=== PATIENT | female | born 1960 | race Two or more races ===

== ENCOUNTER 2017-01-30 09:09 | Emergency (ER) | payer MEDICAID ==
[~2017-01-30] VITALS: Ht 154.9 cm; Wt 74.8 kg
[2017-01-30 10:01] LABS: Basophils # (auto) 0 uL; Basophils % (auto) 0.7 % (0.0-2.0); Eosinophils # (auto) 0.1 uL; Hematocrit 41.5 % (36.0-46.0); Hemoglobin 14.1 g/dL (12.2-16.2); Lymphocytes # (auto) 1.6 uL; Lymphocytes % (auto) 38.8 % (10.0-50.0); Mean Corpuscular Hemoglobin 28.3 pg (28.0-32.0); Mean Corpuscular Hgb Conc. 34.1 g/dL (32.0-36.0); Mean Corpuscular Volume 82.9 fL (80.0-100.0); Mean Platelet Volume 8.4 fL (7.4-10.4); Monocytes # (auto) 0.2 uL; Monocytes % (auto) 6.1 % (0.0-12.0); Neutrophils # (auto) 2.1 uL; Neutrophils % (auto) 51.4 % (37.0-80.0); Platelet Count (auto) 343 10^3/uL (140-450); Red Cell Distribution Width 13.2 % (11.6-16.0); White Blood Cell 4.1 10^3/uL (4.4-10.8)
[2017-01-30] MEDS ORDERED: SODIUM CHLORIDE 0.9% 250 ML IV ONE (10:12)
[2017-01-30] MEDS ORDERED: METOCLOPRAMIDE HCL 5MG/ml INJ 2ml VIAL IV ONE (10:15)
[2017-01-30] MEDS ORDERED: KETOROLAC TROMETH 30 MG/ML 1ML VIAL IV ONE (10:15)
[2017-01-30 10:33] LABS: Albumin 3.7 g/dL (3.4-5.0); Alkaline Phosphatase 88 U/L (45-117); Anion Gap 12 (5-15); Aspartate Aminotransferase 22 U/L (15-37); BUN/Creatinine Ratio 22.6; Bilirubin, Total 0.4 mg/dL (0.2-1.0); Blood Urea Nitrogen 14 mg/dL (7-18); Calcium 8.4 mg/dL (8.5-10.1); Carbon Dioxide 25 mmol/L (21-32); Chloride 102 mmol/L (98-107); GFR African American 127 mL/min; GFR Non-African American 105 mL/min; Glucose 192 mg/dL (74-106); Magnesium 2.2 mg/dL (1.6-2.6); Potassium 3.6 mmol/L (3.5-5.1); Sodium 139 mmol/L (136-145); Total Protein 7.1 g/dL (6.4-8.2)
[2017-01-30 10:46] LABS: Urine Bilirubin Negative (Negative); Urine Blood Negative /uL (Negative); Urine Color Yellow (Yellow); Urine Nitrite Negative (Negative); Urine RBC <1 /hpf (0 - 4); Urine Squamous Epithelial Cell FEW /hpf (<5); Urine Urobilinogen Normal (Negative); Urine pH 5.5 (5.0-8.0)
[2017-01-30 10:48] LABS: Urine Glucose 4+ mg/dL (Normal); Urine Ketone 2+ (Negative)
[2017-01-30 12:17] VITALS: BP 123/83
== END 2017-01-30 12:34 | disposition home or self-care (01) ==
LOC: ER 09:10
DX: R07.89 Other chest pain (principal); E11.65 Type 2 diabetes mellitus with hyperglycemia; I10 Essential (primary) hypertension; F41.9 Anxiety disorder, unspecified
CPT/HCPCS: 36415; 71020; 80053; 81001; 83735; 84443; 84484; 85025; 93005; 94761; 96374; 96375; 99285; J1885; J2765

== ENCOUNTER 2017-02-15 13:29 | Emergency (ER) | payer MEDICAID ==
[~2017-02-15] VITALS: Ht 154.9 cm; Wt 72.6 kg
[2017-02-15 14:50] LABS: Basophils # (auto) 0 uL; Basophils % (auto) 0.4 % (0.0-2.0); Eosinophils # (auto) 0.1 uL; Eosinophils % (auto) 1.4 % (0.0-7.0); Hematocrit 41.8 % (36.0-46.0); Hemoglobin 13.8 g/dL (12.2-16.2); Lymphocytes # (auto) 1.4 uL; Lymphocytes % (auto) 23.2 % (10.0-50.0); Mean Corpuscular Volume 84.6 fL (80.0-100.0); Mean Platelet Volume 9.3 fL (7.4-10.4); Monocytes # (auto) 0.3 uL; Monocytes % (auto) 4.7 % (0.0-12.0); Neutrophils # (auto) 4.1 uL; Neutrophils % (auto) 70.3 % (37.0-80.0); Platelet Count (auto) 319 10^3/uL (140-450); Red Cell Distribution Width 13.3 % (11.6-16.0); White Blood Cell 5.9 10^3/uL (4.4-10.8)
[2017-02-15 15:12] LABS: Albumin 3.7 g/dL (3.4-5.0); Anion Gap 11 (5-15); Aspartate Aminotransferase 17 U/L (15-37); BUN/Creatinine Ratio 18.3; Blood Urea Nitrogen 15 mg/dL (7-18); Calcium 8.3 mg/dL (8.5-10.1); Carbon Dioxide 24 mmol/L (21-32); Chloride 102 mmol/L (98-107); GFR African American 92 mL/min; GFR Non-African American 76 mL/min; Glucose 230 mg/dL (74-106); Magnesium 1.9 mg/dL (1.6-2.6); Potassium 3.9 mmol/L (3.5-5.1); Sodium 137 mmol/L (136-145)
[2017-02-15 15:17] LABS: Alkaline Phosphatase 85 U/L (45-117); Bilirubin, Total 0.3 mg/dL (0.2-1.0); Total Protein 7.2 g/dL (6.4-8.2)
[2017-02-15] MEDS ORDERED: NALBUPHINE HCL 10 MG/1ml INJECTION IM ONE (19:15)
[2017-02-15] MEDS ORDERED: ASPirin 81 mg TAB PO ONE (19:15)
[2017-02-15] MEDS ORDERED: ONDANSETRON ODT 4 MG TAB PO ONE (19:15)
[2017-02-15] MEDS ORDERED: NALBUPHINE HCL 10 MG/1ml INJECTION IV ONE (20:00)
[2017-02-15] MEDS ORDERED: ONDANSETRON HCL 4 MG/2 ML VIAL IV ONE (20:15)
[2017-02-15 21:30] VITALS: BP 145/92
== END 2017-02-15 21:54 | disposition home or self-care (01) ==
LOC: ER 13:29
DX: E07.89 Other specified disorders of thyroid (principal); E11.9 Type 2 diabetes mellitus without complications; I10 Essential (primary) hypertension
CPT/HCPCS: 36415; 71020; 80053; 83735; 84484; 85025; 93005; 96374; 96375; 99285; J2300; J2405

== ENCOUNTER 2017-08-27 13:30 | Emergency (ER) | payer MEDICAID ==
[~2017-08-27] VITALS: Ht 157.5 cm; Wt 72.6 kg
[2017-08-27 14:10] LABS: Basophils # (auto) 0 uL; Basophils % (auto) 0.5 % (0.0-2.0); Eosinophils # (auto) 0 uL; Eosinophils % (auto) 0.2 % (0.0-7.0); Hematocrit 43.6 % (36.0-46.0); Hemoglobin 14.8 g/dL (12.2-16.2); Lymphocytes # (auto) 1.8 uL; Lymphocytes % (auto) 26.8 % (10.0-50.0); Mean Corpuscular Hemoglobin 28.4 pg (28.0-32.0); Mean Corpuscular Hgb Conc. 33.9 g/dL (32.0-36.0); Mean Corpuscular Volume 83.8 fL (80.0-100.0); Monocytes # (auto) 0.4 uL; Monocytes % (auto) 5.5 % (0.0-12.0); Neutrophils # (auto) 4.5 uL; Nucleated Red Blood Cells % 0.1 %; Platelet Count (auto) 284 10^3/uL (140-450); Red Blood Cells 5.21 10^6/uL (4.0-5.20); Red Cell Distribution Width 13.4 % (11.8-14.3); White Blood Cell 6.7 10^3/uL (4.4-10.8)
[2017-08-27 15:03] LABS: Alanine Aminotransferase 23 U/L (13-56); Alkaline Phosphatase 96 U/L (45-117); Amylase 54 U/L (25-115); Anion Gap 10 (5-15); Aspartate Aminotransferase 17 U/L (15-37); BUN/Creatinine Ratio 24.7; Bilirubin, Total 0.5 mg/dL (0.2-1.0); Blood Urea Nitrogen 19 mg/dL (7-18); Calcium 8.6 mg/dL (8.5-10.1); Carbon Dioxide 24 mmol/L (21-32); Chloride 100 mmol/L (98-107); GFR African American 99 mL/min; GFR Non-African American 82 mL/min; Glucose 199 mg/dL (74-106); Lipase 125 U/L (73-393); Potassium 3.7 mmol/L (3.5-5.1); Sodium 134 mmol/L (136-145); Total Protein 7.9 g/dL (6.4-8.2)
[2017-08-28 05:45] VITALS: BP 144/80
== END 2017-08-28 05:47 | disposition home or self-care (01) ==
LOC: ER 13:30
DX: R07.89 Other chest pain (principal); E11.65 Type 2 diabetes mellitus with hyperglycemia; I10 Essential (primary) hypertension; M54.12 Radiculopathy, cervical region; M79.602 Pain in left arm
CPT/HCPCS: 36415; 71010; 80053; 82150; 82962; 83690; 84484; 85025; 93005

== ENCOUNTER 2018-01-22 05:06 | Inpatient (IN) | payer MEDICAID ==
[~2018-01-22] VITALS: Ht 154.9 cm; Wt 73.6 kg
[2018-01-22 07:19] LABS: Urine Bacteria NONE SEEN /hpf (None Seen); Urine Blood Negative /uL (Negative); Urine Mucus FEW (None Seen); Urine Specific Gravity 1.018 (1.001-1.035); Urine WBC 2 /hpf (0 - 5)
[2018-01-22 07:21] LABS: Basophils # (auto) 0 uL; Basophils % (auto) 0.3 % (0.0-2.0); Eosinophils # (auto) 0.1 uL; Eosinophils % (auto) 0.9 % (0.0-7.0); Hematocrit 41.8 % (36.0-46.0); Hemoglobin 14.3 g/dL (12.2-16.2); Lymphocytes # (auto) 1.5 uL; Lymphocytes % (auto) 21.3 % (10.0-50.0); Mean Corpuscular Hemoglobin 28.5 pg (28.0-32.0); Mean Corpuscular Hgb Conc. 34.1 g/dL (32.0-36.0); Mean Corpuscular Volume 83.5 fL (80.0-100.0); Monocytes # (auto) 0.4 uL; Monocytes % (auto) 5.1 % (0.0-12.0); Neutrophils # (auto) 5.1 uL; Neutrophils % (auto) 72.4 % (37.0-80.0); Nucleated Red Blood Cells % 0.1 %; Platelet Count (auto) 351 10^3/uL (140-450); Red Cell Distribution Width 13.3 % (11.8-14.3)
[2018-01-22 07:35] LABS: Alanine Aminotransferase 25 U/L (13-56); Albumin 3.6 g/dL (3.4-5.0); Alkaline Phosphatase 106 U/L (45-117); Anion Gap 9 (5-15); Aspartate Aminotransferase 16 U/L (15-37); BUN/Creatinine Ratio 18.7; Bilirubin, Total 0.4 mg/dL (0.2-1.0); Blood Urea Nitrogen 14 mg/dL (7-18); Calcium 8.8 mg/dL (8.5-10.1); Carbon Dioxide 23 mmol/L (21-32); Chloride 103 mmol/L (98-107); GFR African American 102 mL/min; GFR Non-African American 84 mL/min; Glucose 300 mg/dL (74-106); Magnesium 2.1 mg/dL (1.6-2.6); Potassium 4.1 mmol/L (3.5-5.1); Sodium 135 mmol/L (136-145); Total Protein 7.7 g/dL (6.4-8.2)
[2018-01-22] MEDS ORDERED: cefTRIAXone 1GM/10ml IVPUSH 10 ML IV ONE (12:30)
[2018-01-22] MEDS ORDERED: ASPirin-EC 81 mg tab PO ONE (13:15)
[2018-01-22] MEDS ORDERED: MULTIPLE VITAMINS W/ MINERALS TAB PO ONE (13:15)
[2018-01-22] MEDS ORDERED: CAPTOPRIL 25 MG TAB PO ONE (13:15)
[2018-01-22] MEDS ORDERED: DEXTROSE (50%) 50ML SYRG IV PRN (13:15)
[2018-01-22] MEDS ORDERED: NITROGLYCERIN 0.4 MG SL TAB SL PRN ×2 (13:30)
[2018-01-22] MEDS ORDERED: ALUM & MAG HYDROX-SIMETH LIQ(MAALOX) 30 ML PO ONE (13:30)
[2018-01-22] MEDS ORDERED: ZOLPIDEM TARTRATE 5 MG TAB PO PRN (13:30)
[2018-01-22] MEDS ORDERED: ONDANSETRON HCL 4 MG/2 ML VIAL IV PRN (13:30)
[2018-01-22] MEDS ORDERED: ACETAMINOPHEN 325 MG TAB PO PRN (13:30)
[2018-01-22] MEDS ORDERED: MORPHINE SULFATE 4 MG/ML SYR/VIAL IV PRN ×2 (13:30)
[2018-01-22] MEDS ORDERED: LORazepam 0.5 MG TAB PO PRN (13:30)
[2018-01-22] MEDS: SODIUM CHLOR 0.9% PF (SALINE LOCK) 10ML VIAL IV SCH ×2 (15:24→21:43)
[2018-01-22] MEDS: CLOPIDOGREL BISULFATE 75 MG TAB PO SCH (15:24)
[2018-01-22] MEDS: CARVEDILOL 3.125 MG TAB PO SCH ×2 (15:24→21:44)
[2018-01-22] MEDS ORDERED: INFLUENZA QUAD 2017-2018 0.5 ML SYRG IM ONE (16:00)
[2018-01-22] MEDS ORDERED: PNEUMOCOCCAL VACC POLYS 25 MCG/0.5 ML VIAL IM ONE (16:00)
[2018-01-22] MEDS ORDERED: CAPT25TA5 PO (16:02)
[2018-01-22] MEDS ORDERED: PAR20T PO (16:02)
[2018-01-22] MEDS ORDERED: MULT-228 PO (16:02)
[2018-01-22] MEDS ORDERED: METF-370 PO (16:02)
[2018-01-22 16:49] VITALS: BP 116/69
[2018-01-22] MEDS: ACCU-CHEK COMFORT CURVE STRIP VI SCH ×2 (17:00→21:45)
[2018-01-22] MEDS: InsuLIN REG 1unit/0.01ml Soln (100units/ml) SC SCH ×2 (17:00→21:56)
[2018-01-22] MEDS: CAPTOPRIL 25 MG TAB PO SCH (17:51)
[2018-01-22 20:00] VITALS: BP 118/74
[2018-01-22] MEDS: ATORVASTATIN 20 MG TAB PO SCH (21:44)
[2018-01-22] MEDS: PARoxetine 20 MG TAB PO SCH (21:44)
[2018-01-22 22:03] VITALS: BP 118/74
[2018-01-23 05:09] VITALS: BP 115/89
[2018-01-23 06:16] LABS: Basophils # (auto) 0 uL; Basophils % (auto) 0.6 % (0.0-2.0); Eosinophils # (auto) 0.1 uL; Eosinophils % (auto) 2.5 % (0.0-7.0); Hematocrit 40.7 % (36.0-46.0); Hemoglobin 13.9 g/dL (12.2-16.2); Lymphocytes # (auto) 2.5 uL; Lymphocytes % (auto) 47.5 % (10.0-50.0); Mean Corpuscular Hemoglobin 28.5 pg (28.0-32.0); Mean Corpuscular Hgb Conc. 34.2 g/dL (32.0-36.0); Mean Corpuscular Volume 83.5 fL (80.0-100.0); Monocytes # (auto) 0.5 uL; Monocytes % (auto) 9.4 % (0.0-12.0); Neutrophils # (auto) 2.1 uL; Nucleated Red Blood Cells % 0.2 %; Platelet Count (auto) 342 10^3/uL (140-450); Red Blood Cells 4.88 10^6/uL (4.0-5.20); Red Cell Distribution Width 13.1 % (11.8-14.3); White Blood Cell 5.3 10^3/uL (4.4-10.8)
[2018-01-23 06:29] LABS: Alanine Aminotransferase 19 U/L (13-56); Albumin 3.3 g/dL (3.4-5.0); Alkaline Phosphatase 84 U/L (45-117); Anion Gap 10 (5-15); Aspartate Aminotransferase 16 U/L (15-37); BUN/Creatinine Ratio 18.8; Bilirubin, Total 0.3 mg/dL (0.2-1.0); Blood Urea Nitrogen 13 mg/dL (7-18); Calcium 8.7 mg/dL (8.5-10.1); Carbon Dioxide 23 mmol/L (21-32); Chloride 107 mmol/L (98-107); Cholesterol 184 mg/dL (< 200); GFR African American 112 mL/min; GFR Non-African American 93 mL/min; Glucose 153 mg/dL (74-106); HDL Cholesterol 44 mg/dL (40-59); LDL Cholesterol 136 mg/dL (< 100); Magnesium 2.5 mg/dL (1.6-2.6); Potassium 3.7 mmol/L (3.5-5.1); Sodium 140 mmol/L (136-145); Triglycerides 78 mg/dL (< 150)
[2018-01-23] MEDS: SODIUM CHLOR 0.9% PF (SALINE LOCK) 10ML VIAL IV SCH ×3 (06:30→22:39)
[2018-01-23] MEDS: ACCU-CHEK COMFORT CURVE STRIP VI SCH ×4 (06:57→22:40)
[2018-01-23] MEDS: InsuLIN REG 1unit/0.01ml Soln (100units/ml) SC SCH ×4 (06:58→22:49)
[2018-01-23] MEDS: CAPTOPRIL 25 MG TAB PO SCH ×2 (08:24→18:27)
[2018-01-23] MEDS: cefTRIAXone 1GM/10ml IVPUSH 10 ML IV SCH (08:25)
[2018-01-23 08:49] VITALS: BP 135/77
[2018-01-23] MEDS: CLOPIDOGREL BISULFATE 75 MG TAB PO SCH (10:57)
[2018-01-23] MEDS: DOCUSATE SOD 100 MG CAP PO SCH (10:57)
[2018-01-23] MEDS: MULTIPLE VITAMINS W/ MINERALS TAB PO SCH (10:57)
[2018-01-23] MEDS: ASPirin 81 mg TAB PO SCH (10:57)
[2018-01-23] MEDS: CARVEDILOL 3.125 MG TAB PO SCH ×2 (10:58→22:40)
[2018-01-23 13:00] VITALS: BP 114/59
[2018-01-23 16:49] VITALS: BP 128/69
[2018-01-23 20:00] VITALS: BP 115/72
[2018-01-23 21:25] VITALS: BP 115/72
[2018-01-23] MEDS: ATORVASTATIN 20 MG TAB PO SCH (22:40)
[2018-01-23] MEDS: PARoxetine 20 MG TAB PO SCH (22:40)
[2018-01-24] VITALS (7 sets, daily range): BP systolic 110–142; BP diastolic 63–83
[2018-01-24 06:18] LABS: BUN/Creatinine Ratio 31.3; Calcium 8.9 mg/dL (8.5-10.1)
[2018-01-24] MEDS: ACCU-CHEK COMFORT CURVE STRIP VI SCH ×3 (06:34→18:12)
[2018-01-24] MEDS: SODIUM CHLOR 0.9% PF (SALINE LOCK) 10ML VIAL IV SCH ×2 (06:34→14:29)
[2018-01-24] MEDS: InsuLIN REG 1unit/0.01ml Soln (100units/ml) SC SCH ×3 (06:41→18:13)
[2018-01-24] MEDS: CAPTOPRIL 25 MG TAB PO SCH ×2 (08:00→18:14)
[2018-01-24] MEDS: CARVEDILOL 3.125 MG TAB PO SCH (10:00)
[2018-01-24] MEDS: DOCUSATE SOD 100 MG CAP PO SCH (11:02)
[2018-01-24] MEDS: CLOPIDOGREL BISULFATE 75 MG TAB PO SCH (11:02)
[2018-01-24] MEDS: cefTRIAXone 1GM/10ml IVPUSH 10 ML IV SCH (11:02)
[2018-01-24] MEDS: ASPirin 81 mg TAB PO SCH (11:02)
[2018-01-24] MEDS: MULTIPLE VITAMINS W/ MINERALS TAB PO SCH (11:02)
== END 2018-01-24 19:05 | disposition home or self-care (01) | DRG 203 ==
LOC: ER 05:06 → TELE 05:07 → TELE-WESTW 15:39
PROVIDERS: ADMIT Internal Medicine; ATTEND Internal Medicine
DX: R07.89 Other chest pain (principal); E11.21 Type 2 diabetes mellitus with diabetic nephropathy; E11.65 Type 2 diabetes mellitus with hyperglycemia; E87.1 Hypo-osmolality and hyponatremia; E11.22 Type 2 diabetes mellitus with diabetic chronic kidney disease; E44.1 Mild protein-calorie malnutrition; E78.5 Hyperlipidemia, unspecified; F32.9 Major depressive disorder, single episode, unspecified; F41.9 Anxiety disorder, unspecified; N39.0 Urinary tract infection, site not specified; I70.0 Atherosclerosis of aorta; N18.2 Chronic kidney disease, stage 2 (mild); Z82.49 Family history of ischemic heart disease and other diseases of the circulatory system; Z83.3 Family history of diabetes mellitus; Z23 Encounter for immunization; Z68.30 Body mass index [BMI] 30.0-30.9, adult
CPT/HCPCS: 36415; 71045; 80048; 80053; 80061; 81001; 82962; 83036; 83735; 84484; 85025; 87086; 93005; 93017; 93306; 96374; J1815

== ENCOUNTER 2019-05-10 10:34 | Emergency (ER) | payer MEDICAID ==
[~2019-05-10] VITALS: Ht 154.9 cm; Wt 74.8 kg
[~2019-05-10 10:34] MED LIST: CAPT25TA5 PO; METF-370 PO; MULT-228 PO; PAR20T PO
[2019-05-10 10:48] VITALS: BP 147/78
[2019-05-10 11:16] LABS: Basophils # (auto) 0 uL; Basophils % (auto) 0.8 % (0.0-2.0); Eosinophils # (auto) 0.1 uL; Eosinophils % (auto) 1.8 % (0.0-7.0); Hematocrit 39.2 % (36.0-46.0); Hemoglobin 13.4 g/dL (12.2-16.2); Lymphocytes # (auto) 1.4 uL; Lymphocytes % (auto) 31.4 % (10.0-50.0); Mean Corpuscular Hemoglobin 29.1 pg (28.0-32.0); Mean Corpuscular Hgb Conc. 34.3 g/dL (32.0-36.0); Mean Corpuscular Volume 84.8 fL (80.0-100.0); Monocytes # (auto) 0.2 uL; Monocytes % (auto) 5.4 % (0.0-12.0); Neutrophils # (auto) 2.7 uL; Neutrophils % (auto) 60.6 % (37.0-80.0); Nucleated Red Blood Cells % 0.1 %; Platelet Count (auto) 269 10^3/uL (140-450); Red Blood Cells 4.61 10^6/uL (4.0-5.20); Red Cell Distribution Width 13.6 % (11.8-14.3); White Blood Cell 4.4 10^3/uL (4.4-10.8)
[2019-05-10 11:32] LABS: Albumin 3.8 g/dL (3.4-5.0); Anion Gap 8 (5-15); Blood Urea Nitrogen 13 mg/dL (7-18); Calcium 8.6 mg/dL (8.5-10.1); Carbon Dioxide 26 mmol/L (21-32); Chloride 104 mmol/L (98-107); Glucose 179 mg/dL (74-106); Magnesium 2.1 mg/dL (1.6-2.6); Potassium 3.5 mmol/L (3.5-5.1); Sodium 138 mmol/L (136-145)
[2019-05-10 11:36] LABS: Alanine Aminotransferase 27 U/L (13-56); Alkaline Phosphatase 94 U/L (45-117); Aspartate Aminotransferase 19 U/L (15-37); BUN/Creatinine Ratio 19.1; Bilirubin, Total 0.4 mg/dL (0.2-1.0); GFR African American 114 mL/min; GFR Non-African American 94 mL/min; Total Protein 7.1 g/dL (6.4-8.2)
== END 2019-05-10 17:06 | disposition left against medical advice (07) ==
LOC: ER 10:46
DX: R53.1 Weakness (principal); Z53.21 Procedure and treatment not carried out due to patient leaving prior to being seen by health care provider
CPT/HCPCS: 36415; 71046; 80053; 83735; 84484; 85025; 93005